=== PATIENT | female | born 1965 | race Caucasian/White ===

== ENCOUNTER 2017-02-26 06:48 | Day surgery (SDC) | payer SELFPAY ==
[2017-02-21 11:37] VITALS: BMI 22.6
[2017-02-26] MEDS ORDERED: LIDOCAINE 1%/EPI 1:100000 (20 ML MULTI DOSE VIAL) ONE (07:25)
[2017-02-26] MEDS ORDERED: SUCCINYLCHOLINE CHLORIDE 200 MG/10 ML VIAL ONE (07:40)
[2017-02-26] MEDS ORDERED: ROCURONIUM BROMIDE 50 MG/5 ML VIAL ONE (07:40)
[2017-02-26] MEDS ORDERED: PROPOFOL 20 ML ONE ×3 (07:40→09:27)
[2017-02-26] MEDS ORDERED: MIDAZOLAM HCL 2 MG/2 ML SINGLE DOSE VIAL ONE (07:41)
[2017-02-26] MEDS ORDERED: OXYMETAZOLINE 0.05% NASAL SOLUTION 15 ML BOTTLE NS ONE (07:53)
[2017-02-26] MEDS ORDERED: ONDANSETRON 4 MG/2 ML VIAL ONE (08:31)
[2017-02-26] MEDS ORDERED: ceFAZolin SODIUM 1 GM VIAL ONE (08:31)
[2017-02-26] MEDS ORDERED: DEXAMETHASONE SOD PHOSPHATE 4 MG/1 ML VIAL ONE (08:31)
[2017-02-26] MEDS ORDERED: GLYCOPYRROLATE 0.2 MG/1 ML VIAL ONE (09:12)
[2017-02-26] MEDS ORDERED: NEOSTIGMINE METHYLSULFATE 0.5 MG/ML - 10 ML MDV ONE (09:13)
[2017-02-26] MEDS ORDERED: BACITRACIN 15 GM TUBE TOPICAL OINTMENT ONE (09:15)
[2017-02-26] MEDS ORDERED: PROMETHAZINE HCL 25 MG/1 ML VIAL IVPUSH PRN (09:41)
[2017-02-26] MEDS ORDERED: ONDANSETRON 4 MG/2 ML VIAL IVPUSH PRN (09:41)
[2017-02-26] MEDS ORDERED: oxyCODONE HCL 5 MG TABLET PO PRN ×3 (09:41→09:50)
[2017-02-26] MEDS ORDERED: LACTATED RINGERS SOLUTION 1,000 ML IV SCH ×2 (09:45→10:00)
[2017-02-26 09:50] VITALS: TEMP 97.7
[2017-02-26] MEDS ORDERED: ONDANSETRON 4 MG/2 ML VIAL IVPB PRN (09:50)
--- NOTE | 2017-02-26 09:52 | OP ---
Operative Note - Note: Operative Date: 02/26/17 Pre-Operative Diagnosis: nasal deformity Operation: rhinoplasty Post-Operative Diagnosis: Same as Pre-op Surgeon: Jose Lebron Anesthesia: General, Local Operative Report Dictated: Yes
[2017-02-26 11:09] VITALS: BP 102/65; PULSE 70
--- NOTE | 2017-02-26 11:16 | OP ---
DATE OF OPERATION: 02/26/2017 TITLE OF PROCEDURE: Rhinoplasty. PREOPERATIVE DIAGNOSIS: Secondary nasal deformity. POSTOPERATIVE DIAGNOSIS: Secondary nasal deformity. The patient is seen in the holding area, counseled on all risks, benefits, and alternatives to the procedure, understands and agrees to proceed. She understands that perfect symmetry is not possible. She understands there will be a transcolumellar scar. Patient is marked in the holding area, awake and aware of incisions, resulting scars. She is given sequential compression stockings and WALTER hose in the holding area. A gram of Ancef was given preoperatively. DESCRIPTION OF PROCEDURE: She was brought to the operating room and placed in supine position. Position is carefully checked by surgical and anesthesia teams. The patient is then prepped and draped in standard surgical fashion. Sequential compression stockings are turned on. The operative sites are injected with a total of 1.5 mL of 1% lidocaine with 1:100,000 epinephrine. After waiting 10 minutes for the hemostatic effect, a timeout is called. Patient, procedure, side, sites are verified. At this point, transcolumellar incision is made. The medial genu of the lower lateral cartilages is dissected. Dissection is not continued out onto the dome of the lower lateral cartilages. It is focused on the medial crura. At this point, the medial crura are dissected bilaterally, and a plane is dissected between the medial crura and the crural septum. At this point, a 5-0 Prolene suture is used to tack the cephalic border of the bilateral medial crura to the caudal border of the septum with the skin then reapproximated with a 6-0 nylon. It was able to be determined that this very effectively and aesthetically corrects the deformity. A fraction of a millimeter of excess cartilage along the inferior free edge of the medial crura is trimmed, and a suture between the 2 medial crura is then placed to even their position along the infra-tip lobule. This is done with a single horizontally-mattressed 5-0 Prolene suture. The skin is then re-tacked in order to assess for symmetry of the area which is found to be excellent. Hemostasis is achieved, and closure of the skin is then performed with a series of interrupted 6-0 nylon suture on the skin, and within the vestibular skin, 5-0 chromic gut suture is placed. Bacitracin is applied. All the tissues are pink and viable. Patient is awoken from anesthesia, having tolerated the procedure well, transferred to recovery. Ros DAY/[id number]
== END 2017-02-26 11:15 | disposition home or self-care (01) ==
LOC: FASU 06:48
PROVIDERS: ATTEND Plastic Surgery
PROC: 090K0ZZ Alteration of Nasal Mucosa and Soft Tissue, Open Approach (ICD-10-PCS; principal; 2017-02-26 08:48)
DX: Z41.1 Encounter for cosmetic surgery (principal); M95.0 Acquired deformity of nose
CPT/HCPCS: 84703; 94760

== ENCOUNTER 2017-02-26 19:09 | Emergency (ER) | payer OTHER ==
[2017-02-26] MEDS ORDERED: ONDANSETRON 4 MG/2 ML VIAL IVPUSH ONE ×2 (19:18→21:10)
[2017-02-26] MEDS ORDERED: SODIUM CHLORIDE 1,000 ML IV STA (19:18)
--- NOTE | 2017-02-26 19:20 | PDOC ---
History of Present Illness - General History Source: Patient Exam Limitations: No Limitations - History of Present Illness Initial Comments: 02/26/17 21:33 The patient is a 51 year old female, with a significant past medical history of thalassemia, who presents to the emergency department complaining of nausea s/p rhinoplasty surgery this morning. The patient reports she has been progressively nauseous throughout the day and reports one episode of vomiting described as bilious. The patient reports associated symptoms of dizziness secondary to the nausea. The patient states she had lunch this afternoon. She denies abdominal pain, diarrhea or constipation. She denies recent fevers, chills, or headache. She denies recent dysuria, frequency, urgency or hematuria. She denies recent chest pain or shortness of breath. Allergies: NKA Past surgical history: Rhinoplasty. <Nehemias Queen - Last Filed: 02/26/17 21:29> <Isis Bowers - Last Filed: 02/27/17 02:49> - General Chief Complaint: Nausea/Vomiting Stated Complaint: VOMITING Time Seen by Provider: 02/26/17 19:17 Past History <Nehemias Queen - Last Filed: 02/26/17 21:29> - Past Medical History Anemia: No Asthma: No Cancer: No Cardiac Disorders: No CVA: No COPD: No CHF: No Dementia: No Diabetes: No GI Disorders: No Disorders: No HTN: No Hypercholesterolemia: No Liver Disease: No Seizures: No Thyroid Disease: No - Surgical History Abdominal Surgery: No Appendectomy: No Cardiac Surgery: No Cholecystectomy: No Lung Surgery: No Neurologic Surgery: No Orthopedic Surgery: No - Immunization History Td Vaccination: Yes Immunization Up to Date: No - Psycho/Social/Smoking Cessation Hx Suicidal Ideation: No Smoking Status: No Smoking History: Never smoked Number of Cigarettes Smoked Daily: 0 Hx Alcohol Use: Yes (glass of wine nightly) Drug/Substance Use Hx: No Substance Use Type: None Hx Substance Use Treatment: No <Isis Bowers - Last Filed: 02/27/17 02:49> - Past Medical History Allergies/Adverse Reactions: Allergies Allergy/AdvReac Type Severity Reaction Status Date / Time No Known Allergies Allergy Verified 02/26/17 19:46 Home Medications: Ambulatory Orders Metoclopramide HCl [Reglan -] 10 mg PO BID PRN #10 tablet 02/26/17 Review of Systems - Review of Systems Comments:: 02/26/17 21:34 CONSTITUTIONAL: Absent: fever, chills, diaphoresis, generalized weakness, malaise HEENT: Absent: rhinorrhea, nasal congestion, throat pain, throat swelling, difficulty swallowing, mouth swelling, ear pain, eye pain, visual Changes CARDIOVASCULAR: Absent: chest pain, syncope, palpitations, irregular heart rate, peripheral edema RESPIRATORY: Absent: cough, shortness of breath, dyspnea with exertion, orthopnea, wheezing, stridor, hemoptysis GASTROINTESTINAL: Absent: abdominal pain, abdominal distension, diarrhea, constipation, melena, hematochezia GENITOURINARY: Absent: dysuria, frequency, urgency, hesitancy, hematuria, flank pain, genital pain MUSCULOSKELETAL: Absent: myalgia, arthralgia, joint swelling SKIN: Absent: rash, itching, pallor HEMATOLOGIC/IMMUNOLOGIC: Absent: easy bleeding, easy bruising, lymphadenopathy, frequent infections ENDOCRINE: Absent: unexplained weight gain, unexplained weight loss, heat intolerance, cold intolerance NEUROLOGIC: Absent: headache, focal weakness or paresthesias, unsteady gait, seizure, mental status changes, bladder or bowel incontinence PSYCHIATRIC: Absent: anxiety, depression, suicidal or homicidal ideation, hallucinations. <Nehemias Queen - Last Filed: 02/26/17 21:29> *Physical Exam - Vital Signs Last Vital Signs Temp Pulse Resp BP Pulse Ox 98.2 F 72 18 113/70 99 02/26/17 19:09 02/26/17 19:09 02/26/17 19:09 02/26/17 19:20 02/26/17 19:09 - Physical Exam Comments: 02/26/17 21:35 GENERAL: The patient is awake, alert, and fully oriented. HEAD: Normal with no signs of trauma. EYES: Pupils equal, round and reactive to light, extraocular movements intact, sclera anicteric, conjunctiva clear with no pallor. ENT:+Minimal dried bilateral nares without edema, sutures intact. Ears normal, oropharynx clear without exudates. NECK: Normal range of motion, supple without lymphadenopathy, JVD, or masses. LUNGS: Breath sounds equal, clear to auscultation bilaterally. No wheeze/ crackles. HEART: Regular rate and rhythm, normal S1 and S2 without murmur or rub. ABDOMEN: Soft/nontender/nondistended. BS wnl. No guarding or rebound. No palpable masses. No hepatosplenomegaly. EXTREMITIES: Normal range of motion, no edema. No clubbing or cyanosis. No cords, erythema, or tenderness. NEUROLOGICAL: Cranial nerves II through XII grossly intact. Normal speech, normal gait. PSYCH: Normal mood, normal affect. SKIN: Warm, Dry, normal turgor, no rashes or lesions noted. <Nehemias Queen - Last Filed: 02/26/17 21:29> ED Treatment Course - LABORATORY CBC & Chemistry Diagram: 02/26/17 19:20 02/26/17 19:23 - ADDITIONAL ORDERS Additional order review: Laboratory Results 02/26/17 19:23 Sodium 134 L Potassium 4.3 Chloride 103 Carbon Dioxide 24 Anion Gap 7 L BUN 13 Creatinine 0.5 L Creat Clearance w eGFR > 60 Random Glucose 142 H D Calcium 9.4 Total Bilirubin 1.2 H D AST 19 ALT 14 Alkaline Phosphatase 48 Total Protein 6.8 Albumin 4.5 02/26/17 19:20 RBC 5.34 H MCV 65.0 L MCHC 33.1 RDW 16.0 H MPV 10.5 Neutrophils % Y Lymphocytes % Y - Medications Given in the ED: ED Medications Discontinued Medications Generic Name Dose Route Start Last Admin Trade Name Freq PRN Reason Stop Dose Admin Sodium Chloride 1,000 mls @ 1,000 mls/hr 02/26/17 19:18 02/26/17 19:20 Normal Saline - IV 02/26/17 20:17 1,000 mls/hr ASDIR STA Administration Sodium Chloride 1,000 mls @ 1,000 mls/hr 02/26/17 20:00 02/26/17 20:39 Normal Saline - IV 02/26/17 20:59 1,000 mls/hr ASDIR ONE Administration Ondansetron HCl 4 mg 02/26/17 19:18 02/26/17 19:20 Zofran Injection IVPUSH 02/26/17 19:19 4 mg ONCE ONE Administration Ondansetron HCl 4 mg 02/26/17 21:10 02/26/17 21:13 Zofran Injection IVPUSH 02/26/17 21:11 4 mg ONCE ONE Administration <Nehemias Queen - Last Filed: 02/26/17 21:29> - LABORATORY CBC & Chemistry Diagram: 02/26/17 19:20 02/26/17 19:23 <Isis Bowers - Last Filed: 02/27/17 02:49> Progress Note - Progress Note Progress Note: Documentation has been prepared under my direction and personally reviewed by me in its entirety. I attest that this documented accurately reflects all work, treatment, procedures and medical decision making performed by me. <Isis Bowers - Last Filed: 02/27/17 02:49> Medical Decision Making - Medical Decision Making As noted above, this 51-year-old woman, with history of thalassemia but no other significant medical problems, presents with persistent nausea/vomiting after rhinoplasty earlier today. No fever or abdominal pain noted. The patient has a history of being sensitive to alcohol ingestion, stating that she vomits easily after drinking alcohol. No other medication sensitivity noted. Exam as noted. Laboratory evaluation shows no significant electrolyte abnormality. His evidence of moderate prerenal azotemia with BUN 13 and creatinine 0.5 Patient received 4 mg of Zofran IV and 2 L of normal saline. She continued to have nausea although no further vomiting occurred. Since she continues to have sensation of nausea additional 4 mg Zofran was given IV. Nausea persisted after second dose of 4 mg Zofran IV. Patient given Reglan 10 mg IVPB. Patient reported significant relief after Reglan dose Patient discharged home with prescription for Reglan 10 mg up to twice a day as needed for nausea/vomiting. The patient had supply of Zofran ODT prescribed to her by her anesthesiologist. She should return to the emergency room if she has persistent vomiting or develops abdominal pain/fever. she should follow-up with her general doctor within the next 2 days. <Isis Bowers - Last Filed: 02/27/17 02:49> *DC/Admit/Observation/Transfer - Attestations Scribe Attestion: 02/26/17 21:38 Documentation prepared by Nehemias Queen, acting as medical claims representative for Isis Bowers MD. <Nehemias Queen - Last Filed: 02/26/17 21:29> <Isis Bowers - Last Filed: 02/27/17 02:49> Diagnosis at time of Disposition: Nausea and vomiting Qualifiers: Vomiting type: unspecified Vomiting Intractability: non-intractable Qualified Code(s): R11.2 - Nausea with vomiting, unspecified - Discharge Dispostion Disposition: HOME Condition at time of disposition: Stable - Prescriptions Prescriptions: Metoclopramide HCl [Reglan -] 10 mg PO BID PRN #10 tablet PRN Reason: Nausea - Patient Instructions Printed Discharge Instructions: DI for Vomiting -- Adult Additional Instructions: Clear liquids, advance diet cautiously Reglan 10 mg up to twice a day as needed for persistent nausea/vomiting Can also use Zofran ODT as previously prescribed Return if you have persistent vomiting or become lightheaded Follow-up with your general doctor within the next 48 hours
[2017-02-26 19:34] VITALS: TEMP 98.2; BMI 22.3
[2017-02-26 19:40] LABS: MCH 21.5 pg (25.7-33.7); MCHC 33.1 g/dl (32.0-36.0); MEAN PLT VOLUME 10.5 fl (7.5-11.1); PLATELET COUNT 151 K/MM3 (134-434); WHITE BLOOD COUNT 8.3 K/mm3 (4.0-10.8)
[2017-02-26 19:55] LABS: ALBUMIN 4.5 g/dl (3.5-5.0); ALK PHOS 48 U/L (32-92); ANION GAP 7 (8-16); BILIRUBIN,TOTAL 1.2 mg/dl (0.2-1.0); CALCIUM 9.4 mg/dl (8.4-10.2); CO2 24 mmol/L (22-28); CREATININE 0.5 mg/dl (0.6-1.3); GLUCOSE,RANDOM 142 mg/dl (74-106); SGOT/AST 19 U/L (10-42); SGPT/ALT 14 U/L (10-40); TOT PROT 6.8 g/dl (6.4-8.3)
[2017-02-26] MEDS ORDERED: SODIUM CHLORIDE 1,000 ML IV ONE (20:00)
[2017-02-26] MEDS ORDERED: ONDANSETRON 4 MG/2 ML VIAL ONE (21:13)
[2017-02-26] MEDS ORDERED: METOCLOPRAMIDE HCL INJECTION 10 MG/2 ML VIAL IVPB ONE (21:38)
[2017-02-26 22:06] LABS: PLATELET ESTIMATE ADEQUATE (NORMAL)
[2017-02-26 22:21] VITALS: BP 111/72; PULSE 100
[2017-02-26] MEDS ORDERED: METOCLOPRAMIDE HCL 10 MG TABLET (FP) PO ONE (22:25)
== END 2017-02-26 22:23 | disposition home or self-care (01) ==
LOC: FER 19:09
PROC: 3E033GC Introduction of Other Therapeutic Substance into Peripheral Vein, Percutaneous Approach (ICD-10-PCS; principal; 2017-02-26)
PROC: 3E0337Z Introduction of Electrolytic and Water Balance Substance into Peripheral Vein, Percutaneous Approach (ICD-10-PCS; 2017-02-26)
DX: R11.2 Nausea with vomiting, unspecified (principal); D56.9 Thalassemia, unspecified
CPT/HCPCS: 36415; 80053; 85025; 99284-25